=== PATIENT | male | born 1950 | race Caucasian/White ===

== ENCOUNTER 2023-07-17 17:45 | Inpatient (IN) ==
[2023-07-18 00:46] VITALS: BMI 25.2
[2023-07-19] MEDS: MORPHINE SULFATE INJ 2 MG INJ IVP PRN (09:30)
[2023-07-19] MEDS: VALIUM INJ IVP PRN (09:30)
[2023-07-19] MEDS ORDERED: DUONEB 0.5 MG/3 MG (3 mL) NEB ONE (13:17)
[2023-07-19] MEDS: DUONEB 0.5 MG/3 MG (3 mL) NEB PRN (13:23)
[2023-07-19] MEDS: ISOPTO ATROPINE SL PRN (15:55)
[2023-07-20 13:00] VITALS: BP 137/80; PULSE 97; RESP 18; TEMP 100.6; O2SAT 94
== END 2023-07-20 12:55 | DRG 64 ==
LOC: ICU 21:30 → MED/SURG 07-19 15:13
PROVIDERS: ADMIT Obstetrics & Gynecology Obstetrics; ATTEND Obstetrics & Gynecology Obstetrics
DX: I63.89 Other cerebral infarction; Z78.1 Physical restraint status; J96.00 Acute respiratory failure, unspecified whether with hypoxia or hypercapnia; Z66 Do not resuscitate